=== PATIENT | female | born 2005 | race Caucasian/White ===

== ENCOUNTER 2023-11-01 14:19 | Emergency (ER) | payer BC | END 2023-11-01 15:57 | disposition home or self-care (01) | LOC: JD.ED 14:19 | DX: S80.02XA Contusion of left knee, initial encounter (principal); S80.01XA Contusion of right knee, initial encounter; Z88.1 Allergy status to other antibiotic agents; V18.4XXA Pedal cycle driver injured in noncollision transport accident in traffic accident, initial encounter; Y93.55 Activity, bike riding | CPT/HCPCS: 73562-26-LT; 73562-LT; 99283 ==